=== PATIENT | female | born 1950 | race Caucasian/White ===

== ENCOUNTER → 2017-02-03 | Outpatient (CLI) | payer OTHER, BC ==
[~2017-02-03] MED LIST: ASPI-232 PO; ATEN-173 PO; MULT-506 PO; PRAV80TA2 PO
--- NOTE | 2017-02-03 16:29 | MAMMOGRAPHY REPORT ---
BILATERAL DIGITAL SCREENING MAMMOGRAM WITH CAD: 02/03/2017 TECHNIQUE: Current study was also evaluated with a Computer Aided Detection (CAD) system. Bilatera l CC and MLO views were obtained. COMPARISON: Comparison is made to exams dated: 01/11/2016 mammogram, 01/07/2015 mammogram, 01/07/2011 mammogram, 12/31/2013 mammogram - [facility], and 01/06/2010 mammogram. BREAST COMPOSITION: There are scattered areas of fibroglandular density in both breasts. FINDINGS: No suspicious masses, calcifications, or areas of architectural distortion are noted in e ither breast. There has been no significant interval change compared to prior exams. Left upper out er quadrant mass is stable dating back to at least the 2010 exam. IMPRESSION: ACR BI-RADS CATEGORY 2: BENIGN There is no mammographic evidence of malignancy. A 1 year screening mammogram is recommended. The p atient will receive written notification of the results. Approximately 10% of breast cancers are not detected with mammography. A negative mammographic repor t should not delay biopsy if a clinically suggestive mass is present. Odette Ramos M.D. ah/:02/03/2017 15:15:47 Bee Raiser: Elo YAP)(Natali), [facility] letter sent: Normal 1/2 BI-RADS Code: ACR BI-RADS Category 2: Benign
== END | disposition home or self-care (01) ==
LOC: C.MAMM 13:42
PROVIDERS: ATTEND Family Medicine
DX: Z12.31 Encounter for screening mammogram for malignant neoplasm of breast (principal)

== ENCOUNTER → 2017-12-29 | Outpatient (CLI) | payer OTHER, BC ==
--- NOTE | 2017-12-29 18:37 | DIAGNOSTIC IMAGING REPORT ---
CHEST 2 VIEWS ROUTINE HISTORY: POST-VIRAL COUGH SYNDROME COMPARISON: Chest 08/15/2013. FINDINGS: The lungs are clear. Cardiac silhouette is normal in size. No pleural effusions. No pneumothorax. IMPRESSION: No acute process. Electronically signed by: Piotr Cutler M.D. 12/29/2017 6:35 PM Dictated Date/Time: 12/29/2017 6:34 PM
== END | disposition home or self-care (01) ==
LOC: C.RAD 16:50
PROVIDERS: ATTEND Family Medicine
DX: R05 Cough (principal)

== ENCOUNTER → 2018-02-09 | Outpatient (CLI) | payer OTHER, BC ==
--- NOTE | 2018-02-12 07:34 | MAMMOGRAPHY REPORT ---
BILATERAL DIGITAL SCREENING MAMMOGRAM TOMOSYNTHESIS WITH CAD: 02/09/2018 CLINICAL HISTORY: Routine screening. Patient has no complaints. TECHNIQUE: Breast tomosynthesis in addition to standard 2D mammography was performed. Current study was also evaluated with a Computer Aided Detection (CAD) system. COMPARISON: Comparison is made to exams dated: 02/03/2017 mammogram, 01/11/2016 mammogram, 01/07/2015 m ammogram, 12/31/2013 mammogram, 02/15/2013 mammogram, and 08/06/2012 mammogram - [facility]ter. BREAST COMPOSITION: There are scattered areas of fibroglandular density in both breasts. FINDINGS: No suspicious masses, calcifications, or areas of architectural distortion are noted in ei ther breast. There has been no significant interval change compared to prior exams. Left superior br east mass is stable dating back to at least the 2009 exam, and considered benign given long-term stab ility. IMPRESSION: ACR BI-RADS CATEGORY 2: BENIGN There is no mammographic evidence of malignancy. A 1 year screening mammogram is recommended. The pa tient will receive written notification of the results. Approximately 10% of breast cancers are not detected with mammography. A negative mammographic report should not delay biopsy if a clinically suggestive mass is present. Odette Ramos M.D. /:02/09/2018 15:43:24 Mixologist: Lu GONZALEZ(Azeem)(Natali)(BD), [facility] letter sent: Normal 1/2 BI-RADS Code: ACR BI-RADS Category 2: Benign
== END | disposition home or self-care (01) ==
LOC: C.MAMM 14:23
PROVIDERS: ATTEND Family Medicine
DX: Z12.31 Encounter for screening mammogram for malignant neoplasm of breast (principal)

== ENCOUNTER → 2018-02-12 | Outpatient (CLI) | payer OTHER, BC | END | disposition home or self-care (01) | LOC: C.RDSM 17:36 | PROVIDERS: ATTEND Physical Medicine & Rehabilitation Sports Medicine | DX: M75.41 Impingement syndrome of right shoulder (principal); M75.42 Impingement syndrome of left shoulder ==

== ENCOUNTER → 2018-02-20 | Outpatient (CLI) | payer OTHER, BC ==
--- NOTE | 2018-02-20 15:01 | DIAGNOSTIC IMAGING REPORT ---
R UPPER EXT JOINT WITHOUT CLINICAL HISTORY: 67 years-old Female presenting with RT SHOULDER PAIN, fall from horse, limited range of motion. TECHNIQUE: Multisequence, multiplanar MR imaging of the right shoulder was performed without the use of intravenous contrast. IV contrast: None. COMPARISON: Plain radiographs from 02/12/2018. FINDINGS: Localizer images: Unremarkable. Bone marrow: Minimal bony cystic change at the acromioclavicular joint related to degenerative change. No bony edema. Superior subluxation of the humeral head. Articular cartilage: Articular cartilage preserved. Labrum: Glenoid labrum intact. Biceps and triceps tendons: Long head of the biceps tendon is not seated within the intertubercular groove and appears to be displaced medially. The tendon is increased in signal intensity. The biceps labral complex is poorly characterized and may be torn. Short head of the biceps tendon intact. Long head of the triceps tendon intact. Rotator cuff: Complete tear of the supraspinatus with tendon retraction to the level of the glenohumeral joint. Fibers have retracted over 3 cm.Complete tear of the infraspinatus near the myotendinous junction suspected. Teres minor tendon intact. Tear of the transverse ligament portion of the subscapularis with extensive tendinosis versus partial tear of the more proximal fibers. Acromioclavicular joint: Hypertrophic degenerative changes of the acromioclavicular joint. The undersurface of the acromion has been contoured by the elevated humeral head. Shoulder joint effusion: Trace shoulder joint effusion. Fluid noted in the subacromial-subdeltoid bursa. Muscle: Severe fatty atrophy of the infraspinatus and moderate to severe fatty atrophy of the supraspinatus. Mild fatty atrophy of the subscapularis. Superficial soft tissue: No subcutaneous edema. IMPRESSION: 1. 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 This is chronic as evidenced by elevation of the humeral head, which contours the undersurface of the acromion. 2. Tear of the transverse ligament portion of the subscapularis with displacement of the long head of the biceps tendon medially. Extensive tendinosis versus partial tear of more proximal subscapularis fibers. 3. Significant fatty atrophy of the supraspinatus and infraspinatus muscles and to a lesser extent the subscapularis. 4. Degenerative changes of the acromioclavicular joint. Electronically signed by: Phong Serrato M.D. 02/20/2018 3:00 PM Dictated Date/Time: 02/20/2018 2:48 PM
== END | disposition home or self-care (01) ==
LOC: C.MRI 13:41
PROVIDERS: ATTEND Physician Assistant
DX: M25.511 Pain in right shoulder (principal); S46.011A Strain of muscle(s) and tendon(s) of the rotator cuff of right shoulder, initial encounter; X58.XXXA Exposure to other specified factors, initial encounter; M62.89 Other specified disorders of muscle; M19.011 Primary osteoarthritis, right shoulder